=== PATIENT | male | born 1985 | race Caucasian/White ===

== ENCOUNTER 2018-08-08 08:35 | Emergency (ER) | payer OTHER ==
[~2018-08-08] VITALS: Ht 195.6 cm; Wt 122.5 kg
[2018-08-08 08:59] VITALS: BP 131/93
[2018-08-08 09:42] LABS: Basophils # (auto) 0.1 uL; Basophils % (auto) 0.8 % (0.0-2.0); Eosinophils # (auto) 0.1 uL; Eosinophils % (auto) 1.3 % (0.0-7.0); Hematocrit 42.7 % (41.0-53.0); Hemoglobin 14.5 g/dL (13.5-17.5); Lymphocytes # (auto) 2.6 uL; Lymphocytes % (auto) 29.6 % (10.0-50.0); Mean Corpuscular Hemoglobin 30.6 pg (28.0-32.0); Monocytes # (auto) 0.5 uL; Neutrophils # (auto) 5.5 uL; Neutrophils % (auto) 62.3 % (37.0-80.0); Nucleated Red Blood Cells % 0.1 %; Platelet Count (auto) 318 10^3/uL (140-450); Red Blood Cells 4.75 10^6/uL (4.5-5.90); Red Cell Distribution Width 12.5 % (11.8-14.3); White Blood Cell 8.9 10^3/uL (4.4-10.8)
[2018-08-08 10:05] LABS: Albumin 4.1 g/dL (3.4-5.0); Anion Gap 7 (5-15); Blood Urea Nitrogen 14 mg/dL (7-18); Calcium 8.8 mg/dL (8.5-10.1); Carbon Dioxide 25 mmol/L (21-32); Chloride 109 mmol/L (98-107); Glucose 109 mg/dL (74-106); Potassium 4.1 mmol/L (3.5-5.1); Sodium 141 mmol/L (136-145)
[2018-08-08 10:08] LABS: Aspartate Aminotransferase 15 U/L (15-37); BUN/Creatinine Ratio 16.7; GFR African American 137 mL/min; GFR Non-African American 113 mL/min
[2018-08-08 10:13] LABS: Alanine Aminotransferase 48 U/L (16-61); Alkaline Phosphatase 70 U/L (45-117); Bilirubin, Total 0.3 mg/dL (0.2-1.0); Total Protein 7.4 g/dL (6.4-8.2)
== END 2018-08-08 11:09 | disposition home or self-care (01) ==
LOC: ER 08:35
DX: R07.89 Other chest pain (principal); R42 Dizziness and giddiness; R06.02 Shortness of breath
CPT/HCPCS: 36415; 70450; 71046; 80053; 84484; 85025; 93005